=== PATIENT | female | born 1980 | race Two or more races ===

== ENCOUNTER 2018-06-30 20:07 | Emergency (ER) | payer OTHER ==
[~2018-06-30] VITALS: Ht 165.1 cm; Wt 91.6 kg
[2018-06-30] MEDS ORDERED: PRENATABS RX T1 EACH (20:20)
[2018-06-30] MEDS ORDERED: SYNTHROID125 MCG (20:20)
== END 2018-07-01 06:39 | disposition home or self-care (01) ==
LOC: ER 20:07
DX: R10.816 Epigastric abdominal tenderness (principal)

== ENCOUNTER 2018-11-27 11:58 | Inpatient (IN) | payer OTHER ==
[~2018-11-27] VITALS: Ht 165.1 cm; Wt 102.1 kg
[~2018-11-27 11:58] MED LIST: PRENATABS RX T1 EACH; SYNTHROID125 MCG
== END 2018-12-31 10:26 | DRG 807 ==
LOC: SURG 12-11 14:15 → SURG-SUITE 12-29 08:04 → LDR 12-29 08:04 → SURG-SUITE 12-29 14:55 → SURG 01-05 14:15
PROVIDERS: ADMIT Obstetrics & Gynecology
PROC: 0UQMXZZ Repair Vulva, External Approach (ICD-10-PCS; 2018-12-29)
PROC: 4A1HXCZ Monitoring of Products of Conception, Cardiac Rate, External Approach (ICD-10-PCS; 2018-12-29)
PROC: 10E0XZZ Delivery of Products of Conception, External Approach (ICD-10-PCS; principal; 2018-12-29 15:00)
DX: O71.4 Obstetric high vaginal laceration alone (principal); Z37.0 Single live birth; Z3A.39 39 weeks gestation of pregnancy; Z22.330 Carrier of Group B streptococcus

== ENCOUNTER 2018-12-25 09:48 | Outpatient (CLI) | payer OTHER | END 2018-12-25 10:50 | disposition home or self-care (01) | LOC: NST 09:48 | DX: Z34.83 Encounter for supervision of other normal pregnancy, third trimester (principal) ==